=== PATIENT | male | born 2000 | race Asian ===

== ENCOUNTER 2021-10-06 01:47 | Emergency (ER) | payer OTHER ==
[~2021-10-06] VITALS: Ht 177.8 cm; Wt 70.5 kg
[2021-10-06 01:52] VITALS: TEMP 98.4
[2021-10-06 02:21] VITALS: BP 115/81; PULSE 86
== END 2021-10-06 03:01 | disposition home or self-care (01) ==
LOC: COL.ER 01:47
DX: S50.02XA Contusion of left elbow, initial encounter (principal); V00.831A Fall from motorized mobility scooter, initial encounter; Y92.410 Unspecified street and highway as the place of occurrence of the external cause